=== PATIENT | male | born 2000 | race Caucasian/White ===

== ENCOUNTER 2022-12-16 07:43 | Outpatient (CLI) | payer OTHER, SELFPAY | END 2022-12-16 07:44 | disposition home or self-care (01) | LOC: NFLDREF 12-17 11:25 | PROVIDERS: PCP Physician Assistant Medical; Referring Provider Physician Assistant Medical; Visit Provider Family Medicine | DX: Z13.6 Encounter for screening for cardiovascular disorders (principal); Z83.430 Family history of elevated lipoprotein(a) | CPT/HCPCS: 80053; 80061 ==